=== PATIENT | female | born 1985 | race Caucasian/White ===

== ENCOUNTER → 2021-03-24 | Outpatient (CLI) | payer OTHER ==
[~2021-03-24] MED LIST: BIRTH CONTROL1 EAC1 PO; FLAGYL500 MG; LOMOTIL 0.025 M1 TA1 PO
== END | disposition home or self-care (01) ==
LOC: RAD 12:47
PROVIDERS: ATTEND Chiropractor Orthopedic
DX: M48.07 Spinal stenosis, lumbosacral region (principal); M51.27 Other intervertebral disc displacement, lumbosacral region